=== PATIENT | female | born 1960 | race African-American/Black ===

== ENCOUNTER 2024-02-16 09:43 | Emergency (ER) | payer OTHER ==
[2024-02-16 09:58] VITALS: RESP 18; BMI 31.4
[2024-02-16 11:04] VITALS: TEMP 98
[2024-02-16 11:04] LABS: BASO % 0.6 % (0-2.0); EOS % 1.6 % (0-4.5); HEMATOCRIT 32.1 % (32.4-45.2); MCHC 31.1 g/dl (32.0-36.0); MEAN CELL VOLUME 67.7 fl (80-96); MEAN PLT VOLUME 7.8 fl (7.5-11.1); MONO % 5.7 % (3.8-10.2); NEUT % 67.1 % (42.8-82.8); PLATELET COUNT 252 10^3/uL (134-434); RBC 4.74 M/mm3 (3.60-5.2); RDW 18.5 % (11.6-15.6)
[2024-02-16] MEDS ORDERED: ACETAMINOPHEN INJECTION 100 ML IVPB ONE (11:13)
[2024-02-16] MEDS: ACETAMINOPHEN 1000 MG/100 ML BAG IVPB ONE (11:17)
[2024-02-16 11:18] LABS: POTASSIUM 3.9 mmol/L (3.5-5.1)
[2024-02-16 11:20] LABS: ALBUMIN 3.2 g/dl (3.4-5.0); BLOOD UREA NITROGEN 13.7 mg/dL (7-18); CALCIUM 9.1 mg/dL (8.5-10.1)
[2024-02-16 11:23] LABS: ANISOCYTOSIS 0; CREATININE 0.8 mg/dL (0.55-1.3); MACROCYTOSIS 0
[2024-02-16 11:25] LABS: BILIRUBIN,TOTAL 0.3 mg/dL (0.2-1); TOT PROT 7.8 g/dl (6.4-8.2)
[2024-02-16 14:48] VITALS: BP 162/79; PULSE 87
== END 2024-02-16 14:58 | disposition home or self-care (01) ==
LOC: JER 09:43
PROC: 3E033NZ Introduction of Analgesics, Hypnotics, Sedatives into Peripheral Vein, Percutaneous Approach (ICD-10-PCS; principal; 2024-02-16)
DX: R07.89 Other chest pain (principal); J18.9 Pneumonia, unspecified organism
CPT/HCPCS: 36415; 71045-TC-FY; 80053; 84484; 85025; 99284-25; J0131